=== PATIENT | male | born 1985 | race Two or more races ===

== ENCOUNTER 2024-09-21 02:13 | Inpatient (IN) | payer OTHER ==
[2024-09-21] VITALS (9 sets, daily range): BP systolic 14–140; BP diastolic 57–81; PULSE 56–91; RESP 17–22; TEMP 98–98.3; O2SAT 96–100
[~2024-09-21] VITALS: Ht 182.9 cm; Wt 56.8 kg
[2024-09-21 03:01] LABS: BASOPHILS % (AUTO) 0.4 % (0.0-2.0); EOSINOPHILS % (AUTO) 0.6 % (1.0-6.0); HEMOGLOBIN 10.6 g/dL (13.5-17.5); LYMPHOCYTES # (AUTO) 1.7 K/uL (1.0-4.8); LYMPHOCYTES % (AUTO) 27.4 % (22.0-44.0); MEAN CORPUSCULAR HEMOGLOBIN 28.1 pg (26.0-34.0); MEAN CORPUSCULAR VOLUME 83 fL (80-100); MONOCYTES # (AUTO) 0.5 K/uL (0.1-1.0); MONOCYTES % (AUTO) 8.6 % (2.0-9.0); NEUTROPHILS # (AUTO) 3.8 K/uL (1.8-7.7); PLATELET COUNT (AUTO) 266 K/uL (150-450); RED BLOOD CELL COUNT(AUTO) 3.75 MIL/uL (4.50-5.90); RED CELL DISTRIBUTION WIDTH 16.9 % (11.5-14.5)
[2024-09-21 03:09] LABS: ANION GAP 7 mmol/L (8-16); CALCIUM, TOTAL 8.5 mg/dL (8.8-10.5); CARBON DIOXIDE 28 mmol/L (22-29); CHLORIDE 106 mmol/L (98-107); CREATININE 0.86 mg/dL (0.60-1.30); GLOMERULAR FILTR. RATE CALC > 60 mL/min (>60); GLUCOSE,RANDOM 94 mg/dL (70-110); POTASSIUM 3.8 mmol/L (3.5-5.1); SODIUM SERUM 141 mmol/L (136-145); UREA NITROGEN, BLOOD 14 mg/dL (7-18)
[2024-09-21 03:20] LABS: TROPONIN I-HIGH SENSITIVITY Less Than 4 ng/L (<76)
[2024-09-21 03:31] LABS: B-TYPE NATRIURETIC PEPTIDE 60 pg/mL (0-100)
[2024-09-21 03:34] LABS: CREATINE KINASE, TOTAL ONLY 79 U/L (39-308)
[2024-09-21] MEDS ORDERED: 0.9% SODIUM CHLORIDE 5 ML NEB SOLUTION NEB ONE (03:38)
[2024-09-21] MEDS: ALBUTEROL SULFATE 2.5 MG/0.5 ML NEB SOLUTION NEB ONE (03:41)
[2024-09-21] MEDS: PredniSONE 20 MG TABLET PO ONE (03:45)
[2024-09-21] MEDS: KETOROLAC TROMETHAMINE 30 MG/ML VIAL IVP ONE (03:56)
[2024-09-21] MEDS ORDERED: ACETAMINOPHEN 325 MG TABLET PO PRN (09:45)
[2024-09-21] MEDS ORDERED: ALBUTEROL SULFATE 2.5 MG/0.5 ML NEB SOLUTION NEB PRN (09:45)
[2024-09-21] MEDS ORDERED: IPRATROPIUM BROMIDE 0.5 MG/2.5 ML NEB SOLUTION NEB PRN (09:45)
[2024-09-21] MEDS ORDERED: ZOLPIDEM TARTRATE 5 MG TABLET PO PRN (09:45)
[2024-09-21] MEDS ORDERED: ONDANSETRON HCL 4 MG/2 ML VIAL IVP PRN (09:45)
[2024-09-21] MEDS ORDERED: BISACODYL 10 MG RECTAL RECTAL SUPPOSITORY PR PRN (09:45)
[2024-09-21] MEDS ORDERED: MAGNESIUM HYDROXIDE SUSPENSION 30 ML UDCUP PO PRN (09:45)
[2024-09-21] MEDS ORDERED: TAMS0.4C94 PO (10:45)
[2024-09-21] MEDS ORDERED: AMIT25TA10 PO (10:45)
[2024-09-21] MEDS ORDERED: DOCU-385 PO (10:45)
[2024-09-21] MEDS ORDERED: FURO20TA5 PO (10:45)
[2024-09-21] MEDS ORDERED: ATOR40TA28 PO (10:45)
[2024-09-21] MEDS ORDERED: DULO-114 PO (10:45)
[2024-09-21] MEDS ORDERED: BUDE10.26 IH (10:45)
[2024-09-21] MEDS ORDERED: FERR325T27 PO (10:45)
[2024-09-21] MEDS ORDERED: THEO300T52 PO (10:45)
[2024-09-21] MEDS ORDERED: ROFL500T PO (10:45)
[2024-09-21] MEDS ORDERED: LEVA1.255 IH (10:45)
[2024-09-21] MEDS ORDERED: PRED-729 PO (10:45)
[2024-09-21] MEDS ORDERED: VENL-68 PO (10:45)
[2024-09-21] MEDS ORDERED: HYDR50CA7 PO (10:45)
[2024-09-21] MEDS ORDERED: IPRA0.2S49 NEB (10:45)
[2024-09-21] MEDS ORDERED: NITR0.4T52 SL (10:45)
[2024-09-21] MEDS ORDERED: MAGN-169 PO (10:45)
[2024-09-21] MEDS ORDERED: MONT-35 PO (10:45)
[2024-09-21] MEDS ORDERED: INSU100V SQ (10:45)
[2024-09-21] MEDS ORDERED: BUSP15 PO (10:45)
[2024-09-21] MEDS ORDERED: TIOT185 IH (10:45)
[2024-09-21] MEDS ORDERED: CLOP75TA60 PO (10:45)
[2024-09-21] MEDS ORDERED: OLAN5TAB52 PO (10:45)
[2024-09-21] MEDS: HYDROCODONE/ACETAMINOPHEN 5-325 MG TABLET PO PRN (11:08)
[2024-09-21] MEDS ORDERED: HYDR-4808 PO (11:32)
[2024-09-21] MEDS ORDERED: LEVA15HF3 IH (11:32)
[2024-09-21] MEDS: MethylPREDNISolone SOD SUCC 125 MG/2 ML VIAL IVP SCH (12:07)
[2024-09-21] MEDS: MORPHINE SULFATE 2 MG/ML SYRINGE IVP PRN (13:23)
[2024-09-21] MEDS: ALBUTEROL SULFATE 2.5 MG/0.5 ML NEB SOLUTION NEB SCH (14:00)
[2024-09-21] MEDS: IPRATROPIUM BROMIDE 0.5 MG/2.5 ML NEB SOLUTION NEB SCH (14:00)
[2024-09-21] MEDS: HEPARIN SODIUM,PORCINE 5,000 UNITS/ML VIAL SQ SCH (16:00)
[2024-09-21] MEDS: BENZONATATE 100 MG CAPSULE PO SCH (16:18)
[2024-09-21] MEDS: BUDESONIDE/FORMOTEROL FUMARATE 160-4.5 MCG/PUFF 10.2 GM INHALER IH SCH (20:01)
[2024-09-21] MEDS: OLANZapine 5 MG TABLET PO SCH (20:02)
[2024-09-21] MEDS: BusPIRone HCL 15 MG TABLET PO SCH (20:02)
[2024-09-21] MEDS: GuaiFENesin SR 600 MG ER TABLET PO SCH (20:02)
[2024-09-21] MEDS: MONTELUKAST SODIUM 10 MG TABLET PO SCH (20:02)
[2024-09-21] MEDS: DOCUSATE SODIUM 100 MG CAPSULE PO SCH (20:02)
[2024-09-21] MEDS: HydrOXYzine PAMOATE 25 MG CAPSULE PO SCH (20:03)
[2024-09-21] MEDS: AMITRIPTYLINE HCL 25 MG TABLET PO SCH (20:03)
[2024-09-22] VITALS (11 sets, daily range): BP systolic 104–114; BP diastolic 54–69; PULSE 59–117; RESP 17–20; TEMP 97.7–98.5; O2SAT 96–100
[2024-09-22 04:06] LABS: HEPATITIS C AB (EIA) Reactive (Non Reactive)
[2024-09-22] MEDS: THEOPHYLLINE ANHYDROUS 300 MG PO SCH (09:10)
[2024-09-22] MEDS: ROFLUMILAST 500 MCG TABLET PO SCH (09:10)
[2024-09-22] MEDS: VENLAFAXINE HCL 150 MG ER CAPSULE PO SCH (09:10)
[2024-09-22] MEDS: FUROSEMIDE 20 MG TABLET PO SCH (09:11)
[2024-09-22] MEDS: ATORVASTATIN CALCIUM 40 MG TABLET PO SCH (09:11)
[2024-09-22] MEDS: FERROUS SULFATE 325 MG EC TABLET PO SCH (09:11)
[2024-09-22] MEDS: TAMSULOSIN HCL 0.4 MG CAPSULE PO SCH (09:12)
[2024-09-22] MEDS: CLOPIDOGREL BISULFATE 75 MG TABLET PO SCH (09:12)
[2024-09-22] MEDS: PANTOPRAZOLE SODIUM 40 MG DR TABLET PO SCH (09:12)
[2024-09-22] MEDS: DULoxetine HCL 30 MG CAPSULE PO SCH (09:12)
[2024-09-22] MEDS: MethylPREDNISolone SOD SUCC 40 MG/ML VIAL IVP SCH (10:00)
[2024-09-22 18:05] LABS: TROPONIN I-HIGH SENSITIVITY 9 ng/L (<76)
[2024-09-23] VITALS (9 sets, daily range): BP systolic 110–117; BP diastolic 63–75; PULSE 73–99; RESP 18–20; TEMP 97.6–98.5; O2SAT 94–99
[2024-09-23 06:51] LABS: EOSINOPHILS % (AUTO) 0 % (1.0-6.0); HEMATOCRIT 31.2 % (41-53); HEMOGLOBIN 10.6 g/dL (13.5-17.5); LYMPHOCYTES # (AUTO) 0.6 K/uL (1.0-4.8); LYMPHOCYTES % (AUTO) 5.6 % (22.0-44.0); MEAN CORPUSCULAR HEMOGLOBIN 28.4 pg (26.0-34.0); MEAN CORPUSCULAR HGB CONC 34.1 G/dL (31.0-37.0); MEAN CORPUSCULAR VOLUME 84 fL (80-100); MONOCYTES # (AUTO) 0.4 K/uL (0.1-1.0); MONOCYTES % (AUTO) 3.3 % (2.0-9.0); NEUTROPHILS # (AUTO) 9.8 K/uL (1.8-7.7); PLATELET COUNT (AUTO) 242 K/uL (150-450); RED BLOOD CELL COUNT(AUTO) 3.73 MIL/uL (4.50-5.90); RED CELL DISTRIBUTION WIDTH 17.1 % (11.5-14.5); WHITE BLOOD COUNT (AUTO) 10.7 K/uL (4.5-11.0)
[2024-09-23 07:06] LABS: ANION GAP 6 mmol/L (8-16); CALCIUM, TOTAL 8.9 mg/dL (8.8-10.5); CARBON DIOXIDE 33 mmol/L (22-29); CHLORIDE 104 mmol/L (98-107); CREATININE 0.88 mg/dL (0.60-1.30); GLOMERULAR FILTR. RATE CALC > 60 mL/min (>60); GLUCOSE,RANDOM 127 mg/dL (70-110); POTASSIUM 4.6 mmol/L (3.5-5.1); SODIUM SERUM 143 mmol/L (136-145); UREA NITROGEN, BLOOD 19 mg/dL (7-18)
[2024-09-23 07:16] LABS: NEUTROPHILS % (AUTO) 91.1 % (40.0-70.0)
[2024-09-23] MEDS: PredniSONE 20 MG TABLET PO SCH (08:12)
[2024-09-23] MEDS ORDERED: IOHEXOL 350 MG/ML 100 ML VIAL ONE (16:57)
[2024-09-23] MEDS ORDERED: SODIUM CHLORIDE 0.9% 100 ML ONE (16:57)
[2024-09-23] MEDS ORDERED: 0.9% SODIUM CHLORIDE 10 ML SYRINGE IVP ONE (16:58)
[2024-09-24] VITALS (7 sets, daily range): BP systolic 100–115; BP diastolic 60–69; PULSE 60–110; RESP 16–20; TEMP 97.7–98.4; O2SAT 96–100
[2024-09-24 07:01] LABS: HEMATOCRIT 30.1 % (41-53); HEMOGLOBIN 10.3 g/dL (13.5-17.5); MEAN CORPUSCULAR HEMOGLOBIN 28.3 pg (26.0-34.0); MEAN CORPUSCULAR HGB CONC 34.2 G/dL (31.0-37.0); MEAN CORPUSCULAR VOLUME 83 fL (80-100); PLATELET COUNT (AUTO) 226 K/uL (150-450); RED BLOOD CELL COUNT(AUTO) 3.64 MIL/uL (4.50-5.90); RED CELL DISTRIBUTION WIDTH 17.6 % (11.5-14.5); WHITE BLOOD COUNT (AUTO) 5.6 K/uL (4.5-11.0)
[2024-09-24 07:18] LABS: ANION GAP 6 mmol/L (8-16); CALCIUM, TOTAL 8.3 mg/dL (8.8-10.5); CARBON DIOXIDE 35 mmol/L (22-29); CHLORIDE 103 mmol/L (98-107); CREATININE 0.83 mg/dL (0.60-1.30); GLOMERULAR FILTR. RATE CALC > 60 mL/min (>60); GLUCOSE,RANDOM 89 mg/dL (70-110); POTASSIUM 3.8 mmol/L (3.5-5.1); SODIUM SERUM 144 mmol/L (136-145); UREA NITROGEN, BLOOD 20 mg/dL (7-18)
[2024-09-24 08:00] LABS: BAND NEUTROPHILS % (MANUAL) 0 % (0-5)
[2024-09-24 08:01] LABS: LYMPHOCYTES % (MANUAL) 41 % (22-44); METAMYELOCYTES % 1 % (0-0); MONOCYTES % (MANUAL) 2 % (2-9); RBC MORPHOLOGY COMMENT NORMAL RBC MORPH; SEGMENTED NEUTROPHILS % 56 % (40-70); TOTAL CELLS COUNTED 100
[2024-09-24] MEDS ORDERED: DOXY-354 PO (12:30)
[2024-09-24 17:06] LABS: HEPATITIS C RT-PCR,QNT HCV Not Detected IU/mL
== END 2024-09-24 18:40 | DRG 189 ==
LOC: EMS 02:13 → EDH 05:16 → 6S 05:54 → 5S 09-22 19:00
PROVIDERS: ADMIT Internal Medicine; ATTEND Internal Medicine
DX: J96.21 Acute and chronic respiratory failure with hypoxia (principal); E43 Unspecified severe protein-calorie malnutrition; J44.1 Chronic obstructive pulmonary disease with (acute) exacerbation; Z68.1 Body mass index [BMI] 19.9 or less, adult; D63.8 Anemia in other chronic diseases classified elsewhere; E78.5 Hyperlipidemia, unspecified; F11.10 Opioid abuse, uncomplicated; G40.909 Epilepsy, unspecified, not intractable, without status epilepticus; N40.0 Benign prostatic hyperplasia without lower urinary tract symptoms; Z86.711 Personal history of pulmonary embolism; Z86.73 Personal history of transient ischemic attack (TIA), and cerebral infarction without residual deficits; Z88.0 Allergy status to penicillin; Z88.8 Allergy status to other drugs, medicaments and biological substances
CPT/HCPCS: 71045; 71275; 80048; 82550; 83880; 84484; 85025; 85379; 86803; 87340; 87522; 93005; 93970; 94640; 99285; J1644; J1885; J2270; J2919; J7050; 36415-L1; 36415-TC; J7613

== ENCOUNTER 2024-10-17 23:55 | Inpatient (IN) | payer OTHER ==
[~2024-10-17] VITALS: Ht 182.9 cm; Wt 58.0 kg
[~2024-10-17 23:55] MED LIST: AMIT25TA10 PO; ATOR40TA28 PO; BUDE10.26 IH; BUSP15 PO; CLOP75TA60 PO; DOCU-385 PO; DOXY-354 PO; DULO-114 PO; FERR325T27 PO; FURO20TA5 PO; HYDR-4808 PO; INSU100V SQ; IPRA0.2S49 NEB; LEVA15HF3 IH; MAGN-169 PO; MONT-35 PO; NITR0.4T52 SL; OLAN5TAB52 PO; PRED-729 PO; ROFL500T PO; TAMS0.4C94 PO; TIOT185 IH; VENL-68 PO
[2024-10-18 02:12] LABS: BASOPHILS % (AUTO) 0.8 % (0.0-2.0); EOSINOPHILS % (AUTO) 1.3 % (1.0-6.0); HEMATOCRIT 33.4 % (41-53); HEMOGLOBIN 11.5 g/dL (13.5-17.5); LYMPHOCYTES # (AUTO) 1.4 K/uL (1.0-4.8); LYMPHOCYTES % (AUTO) 21.9 % (22.0-44.0); MEAN CORPUSCULAR HEMOGLOBIN 28.7 pg (26.0-34.0); MEAN CORPUSCULAR HGB CONC 34.6 G/dL (31.0-37.0); MEAN CORPUSCULAR VOLUME 83 fL (80-100); MONOCYTES # (AUTO) 0.5 K/uL (0.1-1.0); MONOCYTES % (AUTO) 7.3 % (2.0-9.0); NEUTROPHILS # (AUTO) 4.5 K/uL (1.8-7.7); NEUTROPHILS % (AUTO) 68.7 % (40.0-70.0); PLATELET COUNT (AUTO) 217 K/uL (150-450); RED BLOOD CELL COUNT(AUTO) 4.01 MIL/uL (4.50-5.90); RED CELL DISTRIBUTION WIDTH 18.3 % (11.5-14.5); WHITE BLOOD COUNT (AUTO) 6.5 K/uL (4.5-11.0)
[2024-10-18] MEDS: TraMADol HCL 50 MG TABLET PO ONE (02:13)
[2024-10-18] MEDS: PredniSONE 20 MG TABLET PO ONE (02:14)
[2024-10-18 02:29] LABS: ANION GAP 6 mmol/L (8-16); CALCIUM, TOTAL 8.8 mg/dL (8.8-10.5); CARBON DIOXIDE 33 mmol/L (22-29); CHLORIDE 100 mmol/L (98-107); CREATININE 1.04 mg/dL (0.60-1.30); GLOMERULAR FILTR. RATE CALC > 60 mL/min (>60); GLUCOSE,RANDOM 96 mg/dL (70-110); POTASSIUM 3.5 mmol/L (3.5-5.1); SODIUM SERUM 139 mmol/L (136-145); UREA NITROGEN, BLOOD 16 mg/dL (7-18)
[2024-10-18] MEDS: HYDROCODONE/ACETAMINOPHEN 5-325 MG TABLET PO ONE (03:30)
[2024-10-18 05:03] LABS: TROPONIN I-HIGH SENSITIVITY 4 ng/L (<76)
[2024-10-18 10:44] VITALS: BP 131/56; PULSE 88; RESP 20; TEMP 98; O2SAT 98
[2024-10-18] MEDS ORDERED: NITROGLYCERIN 0.4 MG SUBLINGUAL TABLET #25 SL PRN (12:00)
[2024-10-18] MEDS ORDERED: DOCUSATE SODIUM 100 MG CAPSULE PO PRN (12:00)
[2024-10-18] MEDS ORDERED: BISACODYL 10 MG RECTAL RECTAL SUPPOSITORY PR PRN (12:00)
[2024-10-18] MEDS ORDERED: ZOLPIDEM TARTRATE 5 MG TABLET PO PRN (12:00)
[2024-10-18] MEDS ORDERED: ALBUTEROL SULFATE 2.5 MG/0.5 ML NEB SOLUTION NEB SCH (12:00)
[2024-10-18] MEDS ORDERED: ONDANSETRON HCL 4 MG/2 ML VIAL IVP PRN (12:00)
[2024-10-18] MEDS ORDERED: LEVALBUTEROL TARTRATE HFA 45 MCG/PUFF 15 GM INHALER IH PRN (12:00)
[2024-10-18] MEDS ORDERED: IPRATROPIUM BROMIDE 0.5 MG/2.5 ML NEB SOLUTION NEB PRN (12:00)
[2024-10-18] MEDS ORDERED: IPRATROPIUM BROMIDE 0.5 MG/2.5 ML NEB SOLUTION NEB SCH (12:00)
[2024-10-18] MEDS ORDERED: MAGNESIUM HYDROXIDE SUSPENSION 30 ML UDCUP PO PRN ×2 (12:00)
[2024-10-18] MEDS: CLOPIDOGREL BISULFATE 75 MG TABLET PO SCH (12:19)
[2024-10-18] MEDS: ATORVASTATIN CALCIUM 40 MG TABLET PO SCH (12:19)
[2024-10-18] MEDS: TAMSULOSIN HCL 0.4 MG CAPSULE PO SCH (12:19)
[2024-10-18] MEDS ORDERED: DEXTROSE 50%-WATER 25 GM/50 ML SYRINGE IVP PRN (12:30)
[2024-10-18] MEDS ORDERED: INSULIN LISPRO 100 UNITS/ML SQ PRN (12:30)
[2024-10-18] MEDS: ROFLUMILAST 500 MCG TABLET PO SCH (13:31)
[2024-10-18] MEDS: VENLAFAXINE HCL 150 MG ER CAPSULE PO SCH (13:31)
[2024-10-18] MEDS: DULoxetine HCL 30 MG CAPSULE PO SCH (13:31)
[2024-10-18] MEDS: BusPIRone HCL 15 MG TABLET PO SCH (13:32)
[2024-10-18] MEDS: ACETAMINOPHEN 325 MG TABLET PO PRN (13:36)
[2024-10-18] MEDS: HEPARIN SODIUM,PORCINE 5,000 UNITS/ML VIAL SQ SCH (15:10)
[2024-10-18 16:11] VITALS: BP 113/70; PULSE 75; RESP 19; TEMP 97.8; O2SAT 98
[2024-10-18 16:30] VITALS: PULSE 86; PULSE 89; RESP 16; RESP 20; O2SAT 95; O2SAT 96
[2024-10-18] MEDS: ALBUTEROL SULFATE 2.5 MG/0.5 ML NEB SOLUTION NEB SCH (16:36)
[2024-10-18] MEDS: IPRATROPIUM BROMIDE 0.5 MG/2.5 ML NEB SOLUTION NEB SCH (16:36)
[2024-10-18 18:46] LABS: GLUCOMETER DEV NAME(LOC) 5S.2D; GLUCOSE,POINT OF CARE 92 MG/DL (70-110)
[2024-10-18 19:32] VITALS: BP 124/70; PULSE 86; RESP 18; TEMP 97.7; O2SAT 100
[2024-10-18] MEDS: BUDESONIDE/FORMOTEROL FUMARATE 160-4.5 MCG/PUFF 10.2 GM INHALER IH SCH (20:23)
[2024-10-18] MEDS: HydrOXYzine PAMOATE 25 MG CAPSULE PO SCH (20:23)
[2024-10-18] MEDS: AMITRIPTYLINE HCL 25 MG TABLET PO SCH (20:24)
[2024-10-18] MEDS: MONTELUKAST SODIUM 10 MG TABLET PO SCH (20:24)
[2024-10-18] MEDS: OLANZapine 5 MG TABLET PO SCH (20:24)
[2024-10-18 23:23] VITALS: BP 106/54; PULSE 71; RESP 17; TEMP 98.5; O2SAT 100
[2024-10-19 01:16] LABS: GLUCOMETER DEV NAME(LOC) 5S.2D; GLUCOSE,POINT OF CARE 128 MG/DL (70-110)
[2024-10-19 05:35] VITALS: BP 115/71; PULSE 69; RESP 17; TEMP 97.8; O2SAT 99
[2024-10-19 06:21] LABS: GLUCOMETER DEV NAME(LOC) 5N.2C; GLUCOSE,POINT OF CARE 93 MG/DL (70-110)
[2024-10-19 08:49] VITALS: BP 133/65; PULSE 72; RESP 18; TEMP 98.1; O2SAT 99
[2024-10-19] MEDS: FUROSEMIDE 20 MG TABLET PO SCH (09:04)
[2024-10-19] MEDS: FERROUS SULFATE 325 MG EC TABLET PO SCH (09:04)
[2024-10-19] MEDS: PANTOPRAZOLE SODIUM 40 MG DR TABLET PO SCH (09:05)
[2024-10-19] MEDS: TIOTROPIUM BROMIDE 18 MCG/INH HANDIHALER [5] IH SCH (09:06)
[2024-10-19 11:32] VITALS: BP 129/73; PULSE 98; RESP 20; TEMP 98; O2SAT 96
[2024-10-19 11:36] LABS: GLUCOMETER DEV NAME(LOC) 5S.2D; GLUCOSE,POINT OF CARE 113 MG/DL (70-110)
[2024-10-19 14:47] VITALS: BP 126/75; PULSE 81; RESP 19; TEMP 98.2; O2SAT 97
[2024-10-19 17:21] LABS: GLUCOMETER DEV NAME(LOC) 5N.2C; GLUCOSE,POINT OF CARE 118 MG/DL (70-110)
== END 2024-10-19 21:45 | disposition left against medical advice (07) | DRG 189 ==
LOC: EMS 23:55 → EDH 10-18 06:17 → UNDOADMIN 10-18 08:06 → EDH 10-18 08:06 → 5S 10-18 10:00
PROVIDERS: ADMIT Hospitalist; ATTEND Hospitalist
DX: J96.20 Acute and chronic respiratory failure, unspecified whether with hypoxia or hypercapnia (principal); J44.1 Chronic obstructive pulmonary disease with (acute) exacerbation; F60.3 Borderline personality disorder; F43.10 Post-traumatic stress disorder, unspecified; E88.01 Alpha-1-antitrypsin deficiency; G40.909 Epilepsy, unspecified, not intractable, without status epilepticus; E78.5 Hyperlipidemia, unspecified; J98.4 Other disorders of lung; N40.0 Benign prostatic hyperplasia without lower urinary tract symptoms; F41.9 Anxiety disorder, unspecified; Z85.831 Personal history of malignant neoplasm of soft tissue; Z90.2 Acquired absence of lung [part of]; Z86.73 Personal history of transient ischemic attack (TIA), and cerebral infarction without residual deficits; Z88.0 Allergy status to penicillin; Z88.8 Allergy status to other drugs, medicaments and biological substances; Z79.899 Other long term (current) drug therapy
CPT/HCPCS: 71045; 80048; 82962; 83880; 84484; 85025; 93005; 94640; 99285; J1644; 36415-L1; 36415-TC; J7613